=== PATIENT | male | born 1960 | race Hispanic/Latino ===

== ENCOUNTER 2018-04-21 05:42 | Day surgery (SDC) | payer OTHER ==
[2018-04-21] MEDS ORDERED: ECOTRIN PO ONE ×2 (06:17→06:18)
[2018-04-21] MEDS ORDERED: NACL 0.9% 500 ML 500 ML ONE (06:18)
[2018-04-21 06:41] LABS: Basophils # (Auto) 0.1 K/mm3 (0.0-0.1); Basophils % (Auto) 0.8 % (0.0-1.8); Eosinophils # (Auto) 0.2 K/mm3 (0.0-0.4); Eosinophils % (Auto) 3.6 % (0.0-4.3); Hematocrit 37.9 % (35.5-45.6); Hemoglobin 13.3 gm/dl (11.8-15.2); Lymphocytes # (Auto) 1.8 K/mm3 (1.2-5.4); Lymphocytes % (Auto) 27.6 % (13.4-35.0); Mean Corpuscular HGB Conc 35 % (32-34); Mean Corpuscular Hemoglobin 32 pg (28-32); Mean Corpuscular Volume 90 fl (84-94); Monocytes # (Auto) 0.6 K/mm3 (0.0-0.8); Monocytes % (Auto) 9.2 % (0.0-7.3); Platelet Count 181 K/mm3 (140-440); Red Cell Distribution Width 13.5 % (13.2-15.2)
[2018-04-21 06:52] LABS: BUN/Creatinine Ratio 12; Blood Urea Nitrogen 12 mg/dL (9-20); Calcium 9.3 mg/dL (8.4-10.2); Hemolysis Index 4; INR 0.96 (0.87-1.13)
[2018-04-21] MEDS ORDERED: NACL 0.9% 500 ML 500 ML IV SCH (07:00)
[2018-04-21] MEDS ORDERED: HEPARIN/NS 5000 UNIT/500ML(CATH LAB) 0 ML IR ONE (07:27)
[2018-04-21] MEDS ORDERED: CALAN ONE (07:28)
[2018-04-21] MEDS ORDERED: HEPARIN 10,000 UNITS/10 ML ONE (07:28)
[2018-04-21] MEDS ORDERED: XYLOCAINE 2% INFILTRATI ONE ×2 (07:28→08:05)
[2018-04-21] MEDS ORDERED: VERSED ONE (07:29)
[2018-04-21] MEDS ORDERED: SUBLIMAZE ONE (07:29)
[2018-04-21] MEDS ORDERED: NITROGLYCERIN SYRINGE 0 ML ONE (07:29)
[2018-04-21] MEDS ORDERED: HEPARIN/NS 5000 UNIT/500ML(CATH LAB) 1,000 ML IR ONE (07:42)
[2018-04-21] MEDS ORDERED: HEPARIN/NS 5000 UNIT/500ML(CATH LAB) 500 ML IR ONE (07:55)
[2018-04-21] MEDS ORDERED: HEPARIN 10,000 UNITS/10 ML 5,000 UNIT in NACL 0.9% 500 ML 500 ML IR ONE (08:00)
[2018-04-21] MEDS ORDERED: SUBLIMAZE IV ONE (08:04)
[2018-04-21] MEDS ORDERED: VERSED IV ONE (08:04)
--- NOTE | 2018-04-21 08:54 | Discharge Summary ---
Short Stay Discharge Plan Activity: advance as tolerated Weight Bearing Status: Full Weight Bearing Diet: low fat, low cholesterol, low salt Special Instructions: no heavy lifting Follow up with: LI CORNEJO MD [Primary Care Provider] - 7 Days ROYAL FALK MD [Staff Physician] - 7 Days
--- NOTE | 2018-04-21 09:52 | Cardiac Catherization Report ---
HISTORY: The patient is a 57-year-old male who was found to have severe mitral regurgitation on echocardiography. Coronary angiography was recommended prior to mitral valve repair or replacement. PROCEDURES: Left heart catheterization, ventriculography, coronary angiography and aortography via the right femoral artery using 5-Japanese [place] catheters and pigtail catheter. A 7-Japanese [place] catheter was used for a right heart catheterization via the right femoral vein. In addition to angiography, pressures and saturations were obtained. COMPLICATIONS: None. TISSUE SAMPLE: None. SEDATION: Intravenous Versed and fentanyl. ESTIMATED BLOOD LOSS: 10-20 mL. PREPROCEDURE DIAGNOSIS: Severe mitral regurgitation. POSTPROCEDURE DIAGNOSES: Severe mitral regurgitation, single vessel coronary artery disease, and mild pulmonary artery hypertension. PRESSURES: Central aortic pressure 104/69, left ventricular pressure 104/23, mean right atrial pressure 11, right ventricular pressure 42/13. Pulmonary artery pressure mean of 34. Pulmonary capillary wedge pressure 24 with a V wave of approximately 10 mmHg. Cardiac index 2.23. Cardiac output 4.5. Pulmonary artery pressure 47/23. Saturations, SVC 57, pulmonary artery 64, aorta 90. ANGIOGRAPHIC RESULTS: 1. Left ventricle: Left ventriculogram reveals enlargement of the left ventricle with normal systolic function. The ejection fraction is approximately 60%. There is severe mitral regurgitation. 2. Right coronary artery: This is a dominant vessel. There are no significant lesions. There are minimal atherosclerotic changes. 3. Left coronary artery. The left main and circumflex are free of disease. The LAD is remarkable for a 70% stenosis in the proximal portion. The mid portion of the LAD is calcified, irregular, and is free of significant lesions. The ostium of the first diagonal branch, which is a large caliber vessel, appears to be stenosed by approximately 10%. 4. The aortic root injection demonstrates a normal aortic root and trileaflet aortic valve without regurgitation. FINAL IMPRESSION: 1. Severe mitral regurgitation with normal left ventricular function, mild left ventricular enlargement, and mild pulmonary artery hypertension. 2. Single vessel coronary artery disease with a proximal LAD lesion of approximately 70%. PLAN: Referred to Cardiovascular Surgery, CAD risk factor modification, office followup within 7 days. JOB# [id number] ADALBERTO/NTS
[2018-04-21 12:41] VITALS: BP 117/77
== END 2018-04-21 12:45 | disposition home or self-care (01) ==
LOC: CATHLABREC 05:42
PROVIDERS: ATTEND Internal Medicine
DX: I34.0 Nonrheumatic mitral (valve) insufficiency (principal); F32.9 Major depressive disorder, single episode, unspecified; Z79.01 Long term (current) use of anticoagulants
CPT/HCPCS: 36415; 80048; 85025; 85610; 85730; 93005; 93010; 93460; 99156; 99157; C1894; J1644; J2250; J3010; J7040; Q9967